=== PATIENT | female | born 1945 | race Caucasian/White ===

== ENCOUNTER 2019-08-08 08:22 | Emergency (ER) | payer BC ==
[2019-08-08 09:01] LABS: ABSOLUTE NEUTROPHIL COUNT 6.83; BASO % 0.5 % (0-6); GRAN % 64.3 % (47-80); HEMATOCRIT 40.9 % (35.0-47.0); HEMOGLOBIN 12.7 gm/dl (11.6-16.0); LYMPH % 23.7 % (16-45); MEAN CELL VOLUME 92.3 fl (81-97); MEAN CORPUSCULAR HEMOGLOBIN 28.7 pg (27-33); MEAN CORPUSCULAR HGB CONC 31.1 g/dl (32-36); MEAN PLATELET VOLUME 8.9 fl (7.4-10.4); MONO % 8.5 % (0-9); PLATELET COUNT 334 K/uL (130-400); RED BLOOD COUNT 4.43 M/uL (3.80-5.40); RED CELL DISTRIBUTION WIDTH 14.2 % (11.5-14.5); WHITE BLOOD COUNT W/O DIFF 10.6 K/uL (4.2-12.2)
--- NOTE | 2019-08-08 09:14 | Emergency Department Record ---
History of Present Illness - General Chief complaint: Lower Extremity Pain Stated complaint: LEFT FOOT PAIN Time Seen by Provider: 08/08/19 08:38 Source: Patient Mode of Arrival: EMS Limitations: No limitations - History of Present Illness Initial comments: pt woke up with a sudden onset of l ankle pain with no known injury. pt works as beautician Complaint: Extremity pain Onset/Timin -: Hour(s) Location: Left, Foot History of Same: No Radiation: None Severity scale (1-10): 10 Quality: Aching Consistency: Constant Improves with: Nothing Worsens with: Walking, Weight bearing Associated Symptoms: Denies other symptoms - Related Data Home Medications Medication Instructions Recorded Confirmed Last Taken Tizanidine HCl 4 mg PO ASDIR PRN 08/08/19 08/08/19 1 Day Ago ~08/07/19 4 mg Previous Rx's Medication Instructions Recorded Indomethacin [Indocin] 50 mg PO TID #20 cap 08/08/19 Allergies Allergy/AdvReac Type Severity Reaction Status Date / Time No Known Allergies Allergy No drug Unverified 08/08/19 08:45 allergies\ Travel/Exposure Screening - Travel/Exposure Within Last 30 Days Have you traveled within the last 30 days?: No - Travel/Exposure Within Last Year Have you traveled outside the [place] in the last year?: No - Additonal Travel/Exposure Details Have you been exposed to anyone with a communicable illness?: No - Travel Symptoms Symptom Screening: None Review of Systems Reviewed: No additional complaints except as noted below Constitutional: Reports: As per HPI. Denies: Chills, Fever, Malaise, Night sweats, Weakness, Weight change Eyes: Reports: As per HPI. Denies: Eye discharge, Eye pain, Photophobia, Vision change ENT: Reports: As per HPI. Denies: Congestion, Dental pain, Ear pain, Epistaxis, Hearing loss, Throat pain Respiratory: Reports: As per HPI. Denies: Cough, Dyspnea, Hemoptysis, Stridor, Wheezes Cardiovascular: Reports: As per HPI. Denies: Arrhythmia, Chest pain, Dyspnea on exertion, Edema, Murmurs, Orthopnea, Palpitations, Paroxysmal nocturnal dyspnea, Rheumatic Fever, Syncope Endocrine: Reports: As per HPI. Denies: Fatigue, Heat or cold intolerance, Polydipsia, Polyuria Gastrointestinal: Reports: As per HPI. Denies: Abdominal pain, Constipation, Diarrhea, Hematemesis, Hematochezia, Melena, Nausea, Vomiting Genitourinary: Reports: As per HPI. Denies: Abnormal menses, Discharge, Dyspareunia, Dysuria, Frequency, Hematuria, Incontinence, Retention, Urgency Musculoskeletal: Reports: As per HPI. Denies: Arthralgia, Back pain, Gout, Joint swelling, Myalgia, Neck pain Skin: Reports: As per HPI. Denies: Bruising, Change in color, Change in hair/nails, Lesions, Pruritus, Rash Neurological: Reports: As per HPI. Denies: Abnormal gait, Confusion, Headache, Numbness, Paresthesias, Seizure, Tingling, Tremors, Vertigo, Weakness Psychiatric: Reports: As per HPI. Denies: Anxiety, Auditory hallucinations, Depression, Homicidal thoughts, Suicidal thoughts, Visual hallucinations Hematological/Lymphatic: Reports: As per HPI. Denies: Anemia, Blood Clots, Easy bleeding, Easy bruising, Swollen glands Past Medical History - SOCIAL HISTORY Smoking Status: Current every day smoker Alcohol Use: None Drug Use: None - RESPIRATORY Hx Respiratory Disorders: No - CARDIOVASCULAR Hx Cardio Disorders: No - NEURO Hx Headaches: Yes - GI Hx GI Disorders: No - Hx Genitourinary Disorders: No - ENDOCRINE Hx Endocrine Disorders: No - MUSCULOSKELETAL Hx Arthritis: Yes (Dx 4 years ago) - PSYCH Hx Psych Problems: No - HEMATOLOGY/ONCOLOGY Hx Hematology/Oncology Disorders: No Family Medical History Any Significant Family History?: Yes Hx Cancer: Brother/Sister *Cancer Comment: Breast cancer Hx HTN: Mother Physical Exam - General General Appearance: Alert, Oriented x3, Cooperative, No acute distress - Head Head exam: Normal inspection - Eye Eye exam: Normal appearance, PERRL, EOMI Pupils: Normal accommodation - ENT ENT exam: Normal exam, Mucous membranes moist, Normal external ear exam, Normal orophraynx Ear exam: Normal external inspection. negative: External canal tenderness Nasal Exam: Normal inspection. negative: Discharge, Sinus tenderness Mouth exam: Normal external inspection, Tongue normal Teeth exam: Normal inspection. negative: Dental caries Throat exam: Normal inspection. negative: Tonsillar erythema, Tonsillar exudate - Neck Neck exam: Normal inspection, Full ROM. negative: Tenderness - Respiratory Respiratory exam: Normal lung sounds bilaterally. negative: Respiratory distress - Cardiovascular Cardiovascular Exam: Regular rate, Normal rhythm, Normal heart sounds - GI/Abdominal GI/Abdominal exam: Soft, Normal bowel sounds. negative: Tenderness - Rectal Rectal exam: Deferred - exam: Deferred - Extremities Extremities exam: Full ROM, Normal capillary refill, Tenderness Image of Feet: 1 - tender - Back Back exam: Reports: Normal inspection, Full ROM. Denies: Muscle spasm, Rash noted, Tenderness - Neurological Neurological exam: Alert, CN II-XII intact, Normal gait, Oriented X3 - Psychiatric Psychiatric exam: Normal affect, Normal mood - Skin Skin exam: Dry, Intact, Normal color, Warm Course Vital Signs 08/08/19 08:23 Temperature 97.5 F L Pulse Rate [ 66 Left Radial] Respiratory 18 Rate Blood Pressure 129/73 [Left Arm] Pulse Ox 99 Medical Decision Making - Lab Data Result diagrams: 08/08/19 08:30 08/08/19 08:30 Lab Results 08/08/19 Range/Units 08:30 WBC 10.6 (4.2-12.2) K/uL RBC 4.43 (3.80-5.40) M/uL Hgb 12.7 (11.6-16.0) gm/dl Hct 40.9 (35.0-47.0) % MCV 92.3 (81-97) fl MCH 28.7 (27-33) pg MCHC 31.1 L (32-36) g/dl RDW 14.2 (11.5-14.5) % Plt Count 334 (130-400) K/uL MPV 8.9 (7.4-10.4) fl Gran % 64.3 (47-80) % Lymphocytes % 23.7 (16-45) % Monocytes % 8.5 (0-9) % Eosinophils % 3.0 (0-6) % Basophils % 0.5 (0-6) % Absolute Neutrophils 6.83 Disposition Disposition: Discharge Clinical Impression: Gout Qualifiers: Gout site: ankle Gout etiology: idiopathic Chronicity: acute Laterality: left Qualified Code(s): M10.072 - Idiopathic gout, left ankle and foot Disposition: Home, Self-Care Condition: (1) Good Instructions: Low Purine Diet (ED), Gout (ED) Additional Instructions: follow up with family doctor. return sooner if worse. elevate foot. apply ice. stop motrin while taking indocin Prescriptions: Indomethacin [Indocin] 50 mg PO TID #20 cap Forms: Patient Portal Access Quality - Quality Measures Quality Measures: N/A - Blood Pressure Screening Does Patient Have Any of the Following: No Blood Pressure Classification: Pre-Hypertensive BP Reading Systolic Measurement: 129 Diastolic Measurement: 73 Screening for High Blood Pressure: < Pre-Hypertensive BP, F/U Documented > [G8950] Pre-Hypertensive Follow-up Interventions: Follow-up with rescreen every year.
--- NOTE | 2019-08-08 09:38 | RADIOLOGY REPORT ---
EXAMINATION: Left Ankle, Complete Minimum Three Views EXAM DATE: 08/08/2019 9:22 AM TECHNIQUE: AP, lateral, and oblique INDICATION: pain COMPARISON: None ENCOUNTER: Initial FINDINGS: There is diffuse osteopenia. No evidence of acute fracture, dislocation, or significant soft tissue a bnormalities. Ankle mortise appears intact. Prominent calcaneal spurs at the plantar and Achilles ins ertion. IMPRESSION: No acute fracture or dislocation. Diffuse osteopenia noted. Dictated by: Jaden Rolon MD on 08/08/2019 9:00 AM. .
== END 2019-08-08 10:06 | disposition home or self-care (01) ==
LOC: ER 08:22
DX: M10.072 Idiopathic gout, left ankle and foot (principal); F17.210 Nicotine dependence, cigarettes, uncomplicated
CPT/HCPCS: 80048; 84550; 85025; 99284